=== PATIENT | female | born 1960 | race Caucasian/White ===

== ENCOUNTER 2022-01-26 06:51 | Day surgery (SDC) | payer OTHER ==
[2022-01-24 13:30] LABS: COVID AG,FIA SOURCE NASAL SWAB
[~2022-01-26] VITALS: Ht 154.9 cm; Wt 59.1 kg
[2022-01-26] MEDS ORDERED: CHONDR SULF A SOD/HYALURONATE 1.05 ML KIT IO ONE (06:52)
[2022-01-26] MEDS ORDERED: MethylPREDNISolone SOD SUCC 40 MG/ML VIAL IVP ONE (06:52)
[2022-01-26] MEDS ORDERED: LIDOCAINE/PF 1% 2 ML VIAL CAUDAL ONE (06:52)
[2022-01-26] MEDS ORDERED: NEOMYCIN/POLYMYXIN B/DEXAMETH 3.5 GM OPHTHALMIC OINTMENT OD ONE (06:52)
[2022-01-26] MEDS ORDERED: BALANCED SALT 15 ML OPHTHALMIC IRRIG.SOLN IO ONE (06:52)
[2022-01-26] MEDS ORDERED: POVIDONE-IODINE 5% 30 ML OPHTHALMIC SOLUTION OD ONE (06:52)
[2022-01-26] MEDS ORDERED: TETRACAINE HCL/PF 0.5% 4 ML OPHTHALMIC SOLUTION OD ONE (06:52)
[2022-01-26] MEDS ORDERED: VANCOMYCIN HCL 500 MG/VIAL IRRIG ONE (06:52)
[2022-01-26] MEDS ORDERED: EPINEPHrine 1:1,000 [1 MG/ML] VIAL ET ONE (06:52)
[2022-01-26] MEDS ORDERED: ACETYLCHOLINE CHLORIDE 1 EA INTRAOCULAR SOLUTION KIT IO ONE (06:52)
[2022-01-26] MEDS ORDERED: RINGERS SOLUTION,LACTATED 500 ML IV ONE ×2 (07:00)
[2022-01-26] MEDS ORDERED: PHENYLEPHRINE HCL 2.5% 2 ML OPHTHALMIC SOLUTION ONE (07:02)
[2022-01-26] MEDS ORDERED: CYCLOPENTOLATE HCL 1% 2 ML OPHTHALMIC SOLUTION ONE (07:03)
[2022-01-26] MEDS ORDERED: TROPICAMIDE 1% 2 ML OPHTHALMIC SOLUTION ONE (07:03)
[2022-01-26] MEDS ORDERED: KETOROLAC TROMETHAMINE 0.5% 5 ML OPHTHALMIC SOLUTION ONE (07:04)
[2022-01-26] MEDS ORDERED: HYDR25TA84 PO (07:45)
[2022-01-26] MEDS ORDERED: ERGO800011 PO (07:45)
[2022-01-26] MEDS ORDERED: ATOR40TA28 PO (07:45)
[2022-01-26] MEDS: CYCLOPENTOLATE HCL 1% 2 ML OPHTHALMIC SOLUTION OD SCH ×3 (07:45→08:10)
[2022-01-26] MEDS ORDERED: CARV25 PO (07:45)
[2022-01-26] MEDS: KETOROLAC TROMETHAMINE 0.5% 5 ML OPHTHALMIC SOLUTION OD SCH ×3 (07:45→08:10)
[2022-01-26] MEDS ORDERED: BUME1TAB34 PO (07:45)
[2022-01-26] MEDS: TROPICAMIDE 1% 2 ML OPHTHALMIC SOLUTION OD SCH ×3 (07:45→08:10)
[2022-01-26] MEDS ORDERED: LISI-893 PO (07:45)
[2022-01-26] MEDS ORDERED: AMLO-258 PO (07:45)
[2022-01-26] MEDS ORDERED: INSU100I26 SQ (07:45)
[2022-01-26] MEDS: PHENYLEPHRINE HCL 2.5% 2 ML OPHTHALMIC SOLUTION OD SCH ×3 (07:45→08:10)
[2022-01-26] MEDS ORDERED: ISOS10TA16 PO (07:45)
[2022-01-26] MEDS ORDERED: RIVA20TA PO (08:03)
[2022-01-26] MEDS ORDERED: OMEP20 PO (08:03)
[2022-01-26] MEDS ORDERED: IBUP-1506 PO (08:09)
[2022-01-26] MEDS ORDERED: FERR325T27 PO (08:09)
[2022-01-26] MEDS ORDERED: MULT-1366 PO (08:09)
[2022-01-26 08:17] LABS: GLUCOMETER DEV NAME(LOC) SDS.; GLUCOSE,POINT OF CARE 143 MG/DL (70-110)
[2022-01-26] MEDS ORDERED: MIDAZOLAM HCL 2 MG/2 ML VIAL IVP ONE (12:00)
[2022-01-26] MEDS ORDERED: FentaNYL CITRATE PF 100 MCG/2 ML VIAL IVP ONE (12:00)
== END 2022-01-26 10:40 | disposition home or self-care (01) ==
LOC: SURGERY 06:51
PROVIDERS: ATTEND Ophthalmology
DX: E11.36 Type 2 diabetes mellitus with diabetic cataract (principal); H25.811 Combined forms of age-related cataract, right eye; Z79.899 Other long term (current) drug therapy; Z98.890 Other specified postprocedural states; I10 Essential (primary) hypertension; G89.29 Other chronic pain
CPT/HCPCS: 87426; 66984; 82962; 93005; C9803; J0171; J3010; J3490; J2250; J2920; J3370; Q9967; J7120; V2632